=== PATIENT | male | born 1970 | race American Indian/Alaskan Native ===

== ENCOUNTER 2021-05-13 10:51 | Emergency (ER) | payer OTHER ==
[2021-05-13] MEDS ORDERED: FAMOTIDINE 20 MG/2 ML INJ IV ONE (11:33)
[2021-05-13] MEDS ORDERED: diphenhydrAMINE 50 MG/ML VIAL IV ONE (11:33)
[2021-05-13] MEDS ORDERED: dexAMETHasone 20 MG/5 ML VIAL IV ONE (11:33)
--- NOTE | 2021-05-13 11:33 | Emergency Department Report ---
HPI - General Chief Complaint: Allergic Reaction Time Seen by Provider: 05/13/21 11:25 - HPI HPI: Patient is a 51-year-old male presents emergency room with complaints of an allergic reaction. Patient states that he was outside working in a garden when he was stung by a bee to the left temporal region. 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 He states that it caused him to have itching in the throat, sensation of throat closing, headache. He denies any vomiting, difficulty swallowing, shortness of breath, urticaria, rash, facial swelling. Patient denies any other past medical history. He also has an allergy to codeine. ED Past Medical Hx - Past Medical History Previous Medical History?: No - Surgical History Past Surgical History?: Yes Additional Surgical History: inguinal hernia repair, lumbar disc surgery, right elbow - Medications Home Medications: Home Medications Medication Instructions Recorded Confirmed Last Taken Type Cetirizine HCl [Zyrtec 10mg tab] 10 mg PO DAILY #7 tablet 05/13/21 Unknown Rx Famotidine [Pepcid] 40 mg PO QHS #7 tablet 05/13/21 Unknown Rx Prednisone [predniSONE 10 mg 10 mg PO .TAPER #1 tab.ds.pk 05/13/21 Unknown Rx (6-Day Pack, 21 Tabs)] ED Review of Systems ROS: Stated complaint: POSS ALLERGIC REACTION Other details as noted in HPI Comment: All other systems reviewed and negative Physical Exam - Physical Exam Vital Signs: Vital Signs 05/13/21 10:56 Temperature 98.2 F Pulse Rate 92 H Respiratory 18 Rate Blood Pressure 143/94 O2 Sat by Pulse 100 Oximetry General: Non toxic appearing, no acute distress atraumatic, normocephalic, no signs of obvious sting zeng present to the scalp, no swelling of the scalp, no erythema normal appearance of the eyes, PERRL, EOMI, no periorbital edema or ecchymosis moist mucus membranes, normal oropharynx, no lip edema, no tongue edema, uvula is midline, no uvular edema or deviation, no trismus, no muffled voice, no tongue elevation regular heart rate and rhythm, no gallops, no rubs, no murmurs breath sounds are clear bilaterally, no w/r/r, no respiratory distress, no accessory muscle use, no stridor, normal effort A&O x4, no focal neuro deficit skin is warm, dry, intact, no urticaria, no rash ED Course Vital Signs 05/13/21 10:56 Temperature 98.2 F Pulse Rate 92 H Respiratory 18 Rate Blood Pressure 143/94 O2 Sat by Pulse 100 Oximetry ED Medical Decision Making - Medical Decision Making Patient is a 51-year-old male presents emergency room with complaints of an allergic reaction. Patient states that he was outside working in a garden when he was stung by a bee to the left temporal region. 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 He states that it caused him to have itching in the throat, sensation of throat closing, headache. He denies any vomiting, difficulty swallowing, shortness of breath, urticaria, rash, facial swelling. Patient denies any other past medical history. He also has an allergy to codeine. Vitals are stable. No obvious signs of angioedema or urticaria. Patient given medications while in the emergency department and was observed for a couple of hours with no complications. Patient given prescription for medications. Advised patient Please take medication as prescribed. Follow-up with your primary care doctor. Return to emergency room for any new or worsening symptoms. Critical care attestation.: If time is entered above; I have spent that time in minutes in the direct care of this critically ill patient, excluding procedure time. ED Disposition Clinical Impression: Bee sting Qualifiers: Encounter type: initial encounter Injury intent: accidental or unintentional Qualified Code(s): T63.441A - Toxic effect of venom of bees, accidental (unintentional), initial encounter Allergic reaction Qualifiers: Encounter type: initial encounter Qualified Code(s): T78.40XA - Allergy, unspecified, initial encounter Disposition: DC-01 TO HOME OR SELFCARE Is pt being admited?: No Does the pt Need Aspirin: No Condition: Stable Instructions: Allergies, Adult, [id number], Bee, Wasp, or Hornet Sting, Adult Additional Instructions: Please take medication as prescribed. Follow-up with your primary care doctor. Return to emergency room for any new or worsening symptoms. Prescriptions: Famotidine [Pepcid] 40 mg PO QHS #7 tablet Prednisone [predniSONE 10 mg (6-Day Pack, 21 Tabs)] 10 mg PO .TAPER #1 tab.ds.pk Cetirizine HCl [Zyrtec 10mg tab] 10 mg PO DAILY #7 tablet Referrals: CATHY LEÓN MD [Staff Physician] - 2-3 Days [facility] [Provider Group] - 2-3 Days MARLENE MOTT MD [Staff Physician] - 2-3 Days Time of Disposition: 13:24 Print Language: SAO TOMEAN
[2021-05-13 15:02] VITALS: BP 140/92
== END 2021-05-13 15:02 | disposition home or self-care (01) ==
LOC: ED 10:51
DX: T63.441A Toxic effect of venom of bees, accidental (unintentional), initial encounter (principal); L29.8 Other pruritus; Z98.890 Other specified postprocedural states; Z79.899 Other long term (current) drug therapy; Z88.8 Allergy status to other drugs, medicaments and biological substances; Y92.89 Other specified places as the place of occurrence of the external cause
CPT/HCPCS: 96374; 96375; 99282; J1100; J1200